=== PATIENT | female | born 2000 | race Hispanic/Latino ===

== ENCOUNTER 2022-07-09 06:00 | Inpatient (IN) | payer OTHER ==
[2022-07-09] MEDS ORDERED: NS w/ Oxytocin 30 units 500 ML ONE (07:05)
[2022-07-09] MEDS: Lactated Ringer's 1,000 ML IV SCH ×2 (07:15→10:33)
[2022-07-09] MEDS ORDERED: Penicillin G Potassium 5 MILL.UNITS in Sodium Chloride 0.9% 100 ML IVPB SCH (07:24)
[2022-07-09] MEDS ORDERED: HYDROcodone/Acetaminophen 5/325 mg Tablet PO PRN ×4 (07:24→21:44)
[2022-07-09] MEDS ORDERED: Butorphanol Tartrate 1 MG/ML VIAL SLOW IVP PRN (07:24)
[2022-07-09] MEDS ORDERED: Promethazine HCl 25 MG/ML VIAL IM PRN ×2 (07:24→09:03)
[2022-07-09] MEDS ORDERED: Ibuprofen 800 MG TAB PO PRN (07:24)
[2022-07-09] MEDS ORDERED: hydrALAZINE 20 MG/ML VIAL SLOW IVP PRN ×2 (07:24→21:44)
[2022-07-09] MEDS ORDERED: Ondansetron PF 4 MG/2 ML Vial IVP PRN ×3 (07:24→21:44)
[2022-07-09] MEDS ORDERED: NS w/ Oxytocin 30 units 500 ML IV SCH ×3 (07:24→21:44)
[2022-07-09] MEDS ORDERED: Lidocaine 1% (PF) 30 ML VIAL SC PRN (07:24)
[2022-07-09] MEDS ORDERED: Bupivacaine 0.25% HCL 30 ML VIAL ONE (08:00)
[2022-07-09 08:09] VITALS: BMI 36.0
[2022-07-09 08:09] LABS: Hemoglobin 11.9 g/dL (12.0-15.5); Mean Corpuscular HGB CONC 34.2 g/dL (32.0-36.0); Mean Corpuscular Hemoglobin 30.1 pg (27.0-33.0); Mean Corpuscular Volume 88.1 fl (81.6-98.3); Mean Platelet Volume 12.8 fl (7.4-10.4); Platelet Count 220 10x3/uL (150-450); RBC Distribution Width 14.3 % (11.5-14.5); Red Blood Cell (RBC) Count 3.95 10x6/uL (3.90-5.03); White Blood Cell (WBC) Count 9.3 10x3/uL (3.5-10.5)
[2022-07-09 08:31] LABS: Syphilis Antibody Nonreactive (Nonreactive); Syphilis Antibody Index 0.05 S/CO (<1.00 Non-Reactive)
[2022-07-09] MEDS ORDERED: Fentanyl 2 mcg/Bup 0.1% Cadd 100 ML ONE (08:31)
[2022-07-09 08:33] LABS: HBSAg Index 0.19 S/CO (0-0.99); Hep B Surf Ag Non-Reactive S/CO (NonReactive)
[2022-07-09] MEDS ORDERED: Lactated Ringer's 500 ML IV PRN (09:03)
[2022-07-09] MEDS ORDERED: Naloxone HCl 0.4 mg/ml Vial IVP PRN ×2 (09:03)
[2022-07-09] MEDS ORDERED: ePHEDrine Sulfate 50 MG/10 ML VIAL SLOW IVP PRN (09:03)
[2022-07-09] MEDS ORDERED: diphenhydrAMINE 50 MG/ML VIAL IVP PRN (09:03)
[2022-07-09] MEDS ORDERED: Acetaminophen 325 MG TAB PO PRN (09:03)
[2022-07-09] MEDS ORDERED: Moisturizing Cream (Eucerin) 113 GM JAR TOP PRN (09:03)
[2022-07-09] MEDS ORDERED: Communication Order-Pharmacy FS SCH (09:15)
[2022-07-09] MEDS ORDERED: Fentanyl 2 mcg/Bupivacaine 0.1% Cassette 100 ML EPIDURAL SCH (09:15)
[2022-07-09 09:50] LABS: HIV (1/2) Antibody/Antigen Non-Reactive (NonReactive); HIV 1/2 INDEX 0.09 S/CO (<1.00)
[2022-07-09] MEDS: Penicillin G 2.5 MILL.units 2.5 MILL.UNITS in Premix Bag 1 BAG IVPB SCH ×2 (11:42→21:56)
[2022-07-09] MEDS ORDERED: diphenhydrAMINE 25 MG CAP PO PRN (21:44)
[2022-07-09] MEDS ORDERED: Lanolin Ointment 7 GM TUBE TOP PRN (21:44)
[2022-07-09] MEDS ORDERED: Bisacodyl 10 MG SUPP PR PRN (21:44)
[2022-07-09] MEDS ORDERED: Milk Of Magnesia 30 ML UDCUP PO PRN (21:44)
[2022-07-09] MEDS ORDERED: Boostrix 0.5 ML (Tdap) VIAL (>/=7 yrs of age) IM ONE (21:44)
[2022-07-09] MEDS ORDERED: Preparation H Ointment 28 GM TUBE PR PRN (21:44)
[2022-07-09] MEDS ORDERED: Benzocaine-Menthol 82.5 ML CAN TOP PRN (21:44)
[2022-07-09] MEDS ORDERED: Docusate 100 MG CAP PO SCH (22:15)
[2022-07-09] MEDS ORDERED: Ferrous Sulfate 325 MG TAB PO SCH (22:15)
[2022-07-09] MEDS: Ibuprofen 800 MG TAB PO SCH (22:26)
[2022-07-10] MEDS: Ibuprofen 800 MG TAB PO SCH ×2 (05:55→14:10)
[2022-07-10] MEDS ORDERED: Ferrous Sulfate 325 MG TAB PO SCH (08:00)
[2022-07-10] MEDS ORDERED: Docusate 100 MG CAP PO SCH (09:00)
[2022-07-10] MEDS ORDERED: Prenatal Vitamin 1 TAB PO SCH (09:00)
[2022-07-10 11:09] VITALS: BP 121/77; TEMP 97.8
== END 2022-07-10 16:40 | disposition home or self-care (01) | DRG 807 ==
LOC: CSHLD 06:09 → CSHPP 18:28 → CSHLD 18:36 → CSHPP 21:35
PROVIDERS: ADMIT Obstetrics & Gynecology; ATTEND Obstetrics & Gynecology
PROC: 10H07YZ Insertion of Other Device into Products of Conception, Via Natural or Artificial Opening (ICD-10-PCS; principal; 2022-07-09)
PROC: 10E0XZZ Delivery of Products of Conception, External Approach (ICD-10-PCS; 2022-07-09)
PROC: 0HQ9XZZ Repair Perineum Skin, External Approach (ICD-10-PCS; 2022-07-09)
PROC: 10907ZC Drainage of Amniotic Fluid, Therapeutic from Products of Conception, Via Natural or Artificial Opening (ICD-10-PCS; 2022-07-09)
DX: O70.0 First degree perineal laceration during delivery (principal); Z37.0 Single live birth; Z3A.39 39 weeks gestation of pregnancy
CPT/HCPCS: 36415; 51702; 85027; 86780; 86850; 86900; 86901; 87340; 87389; J2540; J2590; J3490; J7120; S0020

== ENCOUNTER 2025-05-24 13:45 | Day surgery (SDC) | payer OTHER ==
[2025-05-24 15:34] LABS: Glucose, Urine (Dipstick) Normal (Negative); Leukocyte 500 (Negative); Protein, Urine (Dipstick) Negative (Neg-Trace); Specific Gravity, Urine 1.005 (1.005-1.030)
[2025-05-24 15:44] LABS: Bacteria/HPF 2+ HPF (None Seen); CAUTI Indications for Culture Pregnancy; Mucous/LPF 1+ LPF (<2+)
[2025-05-24 15:45] LABS: Urine Culture Reflex Yes Yes
== END 2025-05-24 16:45 | disposition home or self-care (01) ==
LOC: CSHLD/OP 13:45
PROVIDERS: ATTEND Family Medicine
DX: O99.891 Other specified diseases and conditions complicating pregnancy (principal); N89.8 Other specified noninflammatory disorders of vagina; R30.9 Painful micturition, unspecified; Z3A.20 20 weeks gestation of pregnancy; Z67.40 Type O blood, Rh positive; Z88.8 Allergy status to other drugs, medicaments and biological substances
CPT/HCPCS: 81001; 87086; 87480; 87510; 87660